=== PATIENT | female | born 1990 | race African-American/Black ===

== ENCOUNTER 2018-08-14 10:52 | Emergency (ER) | payer OTHER ==
[~2018-08-14] VITALS: Ht 157.5 cm; Wt 82.6 kg
[2018-08-14 11:04] VITALS: BP 136/78
[2018-08-14] MEDS ORDERED: ALPRAZolam 0.5 MG TABLET PO ONE (11:15)
[2018-08-14] MEDS ORDERED: ALPR1TAB2 PO (11:16)
--- NOTE | 2018-08-14 11:17 | PHYS DOC ---
Adult General Chief Complaint Chief Complaint: ANXIETY/PANIC ATTACK HPI HPI Patient is a 28 year old female presents to ED complaining of anxiety times one week. Patient states she just moved here from [place] and recently ran out of her anxiety medication. States that her doctor from [place] transfered a months prescription with her and she is setting up with a primary care here and has an appointment next week. States she set up with [facility]. States she takes 1 mg Xanax daily. Uses it when necessary. Thinks the stress from the recent move has triggered her anxiety. Denies homicidal/suicidal ideation, chest pain, shortness of breath, lower leg swelling, abdominal pain, nausea/vomiting, dizziness, fever, weakness or syncope. Review of Systems Review of Systems Constitutional: Denies fever or chills [] Eyes: Denies change in visual acuity, redness, or eye pain [] HENT: Denies nasal congestion or sore throat [] Respiratory: Denies cough or shortness of breath [] Cardiovascular: No additional information not addressed in HPI [] GI: Denies abdominal pain, nausea, vomiting, bloody stools or diarrhea [] : Denies dysuria or hematuria [] Musculoskeletal: Denies back pain or joint pain [] Integument: Denies rash or skin lesions [] Neurologic: Denies headache, focal weakness or sensory changes [] All other systems were reviewed and found to be within normal limits, except as documented in this note. Current Medications Current Medications Current Medications Medications (Trade) Dose Ordered Sig/Romeo Start Time Stop Time Status Last Admin Dose Admin Alprazolam (Xanax) 1 mg 1X ONCE 08/14/18 11:15 08/14/18 11:17 DC 08/14/18 11:20 1 MG Allergies Allergies Allergies Coded Allergies Type Severity Reaction Last Updated Verified Penicillins Allergy Severe Anaphylaxis 08/14/18 Yes Physical Exam Physical Exam Constitutional: Well developed, well nourished, no acute distress, non-toxic appearance. [] HENT: Normocephalic, atraumatic Eyes: PERRLA, EOMI, conjunctiva normal, no discharge. [] Neck: Normal range of motion, no tenderness, supple, no stridor. [] Cardiovascular:Heart rate regular rhythm, no murmur [] Lungs & Thorax: Bilateral breath sounds clear to auscultation [] Abdomen: Bowel sounds normal, soft, no tenderness, no masses, no pulsatile masses. [] Skin: Warm, dry, no erythema, no rash. [] Back: No tenderness, no CVA tenderness. [] Extremities: No tenderness, no cyanosis, no clubbing, ROM intact, no edema. [] Neurologic: Alert and oriented X 3, normal motor function, normal sensory function, no focal deficits noted. [] Psychologic: Affect normal, judgement normal, mood normal. [] Current Patient Data Vital Signs Vital Signs Date Time Temp Pulse Resp B/P (MAP) Pulse Ox O2 Delivery O2 Flow Rate FiO2 08/14/18 11:04 98.1 17 136/78 (97) 98 Room Air 98.1 EKG EKG [] Radiology/Procedures Radiology/Procedures [] Course & Med Decision Making Course & Med Decision Making Pertinent Labs and Imaging studies reviewed. (See chart for details) []We'll prescribe a short prescription of Xanax outpatient. Patient has taken in the past without complications. Discussed symptomatic treatment, Coping measures and the importance of follow-up with [facility] next week. Discussed reasons to return to the ED. Patient understands and agrees with plan. PCP/community resource list provided as well. Dragon Disclaimer Dragon Disclaimer This electronic medical record was generated, in whole or in part, using a voice recognition dictation system. Departure Departure Impression: Primary Impression: Anxiety Disposition: 01 HOME, SELF-CARE Condition: IMPROVED Referrals: NO PCP (PCP) GUERA ASHTON MD Patient Instructions: Anxiety and Panic Attacks Scripts Alprazolam (XANAX) 1 Mg Tablet 1 TAB PO DAILY PRN for ANXIETY / AGITATION, #8 TAB Prov: JAMIE BROWNE 08/14/18 JAMIE BROWNE August 14, 2018 11:17
[2018-09-08] MEDS ORDERED: IBUP-1060 PO (15:16)
[2018-09-08] MEDS ORDERED: HYDR-3164 PO (15:16)
== END 2018-08-14 11:25 | disposition home or self-care (01) ==
LOC: ER 10:52
DX: F41.9 Anxiety disorder, unspecified (principal); Z88.0 Allergy status to penicillin
CPT/HCPCS: 99284